=== PATIENT | male | born 1995 | race Caucasian/White ===

== ENCOUNTER 2021-08-18 13:34 | Outpatient (REF) | payer OTHER, SELFPAY | END 2021-08-18 13:35 | disposition home or self-care (01) | LOC: HO.LAB 13:34 | PROVIDERS: Visit Provider Internal Medicine | DX: Z20.822 Contact with and (suspected) exposure to COVID-19 (principal) | CPT/HCPCS: C9803; U0003; U0005 ==

== ENCOUNTER 2024-07-07 16:09 | Emergency (ER) | payer SELFPAY ==
--- NOTE | ~2024-07-07 | XR_ITS ---
EXAMINATION: XR MANDIBLE CLINICAL INFORMATION: Mandibular pain, rule out mass. COMPARISON: None available. TECHNIQUE: AP, Angela, bilateral oblique, and lateral views of the mandible. FINDINGS: There is no fracture, dislocation, or suspicious focal bony abnormality. Both TM joints are normally aligned with normal appearance. No fracture or mass of the mandible. Both mandibular wisdom molars are unerupted and impacted. Paranasal sinuses appear normally aerated. Nasal bones intact. Nasal septum midline. Calvarium appears normal. Soft tissues appear normal aside from mildly prominent adenoidal tissues. XR/XR mandible min 4V IMPRESSION: No acute findings of the mandible or TM joints. See above.
[2024-07-07 16:44] VITALS: BP 127/69; PULSE 73; RESP 18; TEMP 36.8; O2SAT 99; BMI 22.4
--- NOTE | 2024-07-07 16:47 | ED.GENADULT ---
HPI - General Adult General Chief complaint: Dental/Oral Stated complaint: bottom jaw pain Related Data Allergies Allergy/AdvReac Type Severity Reaction Status Date / Time No Known Allergies Allergy Verified 07/07/24 16:46 [facility] Social History Social History Do you have a plan to hurt others: No Plan Physical Exam ED Vital Signs: Vital Signs - 24 hr 07/07/24 16:44 Temperature 98.2 F Pulse Rate 73 Respiratory Rate 18 Blood Pressure 127/69 Pulse Oximetry 99 Oxygen Delivery Method Room Air BMI result Body Mass Index 22.4 Course Course Course Narrative: RME, this is a rapid medical exam performed by Stevan Marcos please refer to primary provider for complete H&P- 28-year-old male presents for evaluation of jaw pain on both sides. He reports a 2 month history of pain. He reports that he fracture to the left lower jaw a few weeks ago in his currently on amoxicillin. He was [place] and was told that he has ?masses on my jaw. ? the patient is concerned because mandibular cancer runs in the family. Plan for x-rays Discharge Plan Discharge Print Language: Kinyarwanda
[2024-07-07 22:58] VITALS: BP 128/68; PULSE 52; RESP 18; TEMP 36.2; O2SAT 98
[2024-07-08 02:45] VITALS: BP 122/74; PULSE 51; RESP 18; TEMP 36.4; O2SAT 99
--- NOTE | 2024-07-08 03:19 | PC.NURSE ---
pt left due to wait times; educated patient on the importance of staying to be evaluated by MD; patient states that he has already read his xray results on the portal and knows the results are negative. still encouraged patient to wait to be seen by MD. pt still requesting to leave. clinical coordinator also present at this time. pt left without being seen.
--- NOTE | 2024-07-08 03:25 | PC.NURSE ---
pt left from tx room [facility] 2 w/o completing tx. wait time too long to be seen by provider
== END 2024-07-08 03:26 | disposition left against medical advice (07) ==
PROVIDERS: Emergency Provider Emergency Medicine
DX: R68.84 Jaw pain (principal)
CPT/HCPCS: 70110; 99283

== ENCOUNTER → 2024-07-07 23:00 | Outpatient (BNV) | payer SELFPAY | PROVIDERS: Emergency Provider Emergency Medicine; Visit Provider Radiology Diagnostic Radiology | DX: R68.84 Jaw pain (principal) | CPT/HCPCS: 70110 ==